=== PATIENT | male | born 1950 | race Caucasian/White ===

== ENCOUNTER 2025-01-25 08:12 | Inpatient (IN) | payer MEDICARE, OTHER, SELFPAY ==
[2025-01-25] VITALS (13 sets, daily range): BP systolic 103–139; BP diastolic 71–105; BMI 27.2
--- NOTE | 2025-01-25 06:46 | ED.GENMED ---
History of Present Illness
General
Chief Complaint: Chest Pain
Source: patient and ambulance crew
Exam Limitations: none
Time Seen by Provider: 01/25/25 06:46
Nursing documentation reviewed up to this point in time: agreed with
History of Present Illness
History of Present Illness:
74-year-old male limited past medical history who was pushing his 's car off the train tracks developed shortness of breath diaphoresis syncope pressure in his chest EMS was called EKG concern for ST segment elevation
Transported here urgently, repeat EKG shows subtle ST elevation inferior with ST depression anteriorly, STEMI alert was activated
He drinks social non-smoker go to the gym 5 days a week
Past History
Past History
ED Past Medical History: None
ED Past Surgical History: None
Social History
Tobacco: Non-smoker
Alcohol: Occasional
Drug: None
Personal:
Living: with family
Employment: Employed
Phy Exam
Physical Exam
Physical Exam:
Physical Exam
General: no apparent distress, not acutely ill
Neck: No jaundice
Heart: s1/s2 regular rate and rhythm, no murmur. equal radial pulses.
Lungs: no acute respiratory distress. clear bilaterally
Abdomen: Nontender
Neuro: alert and oriented. no focal neurological deficits
Skin: no rash
Psychiatric: well kept. interactive and cooperative
Extremities: no edema. no calf tenderness.
Scores
Heart Score for Chest Pain Patients
STEMI patient?: Yes
Course
Orders/Labs/Results
Orders:
Orders
01/25/25 Breakfast
Cholesterol Lowering
At Your Request: Full Participation
Does patient need a safe tray?: No
Cholesterol Lowering: Sodium, 2 Gram
01/25/25 06:32
Electrocardiogram (*1) Urgent
Reason for Study: Chest Pain
Cardiac Monitoring- Treatment ONCE
EKG- Treatment ONCE
IV Insert/Care/Rem.- Treatment PRN
O2 Therapy [RESP] Urgent
Titrate/Wean O2 to maintain O2 sat greater than (%): 90
Special Instructions: Maintain sats >/=90%
Pulse Ox/spot Check [RESP] Urgent
Quantity: 1
Special Instructions: ON ROOM AIR
01/25/25 06:36
Cardiovascular Evaluation Urgent
Comment: ADD ON
Comprehensive Metabolic Panel Urgent
Troponin I Urgent
01/25/25 06:37
Complete Blood Count/With Diff Urgent
Glycohemoglobin (HgbA1c) Urgent
01/25/25 06:52
Fentanyl Citrate/Pf [Sublimaze] 100 mcg .ROUTE .STK-MED ONE
Heparin 10,000 units .ROUTE .STK-MED ONE
Midazolam HCl [Versed] 2 mg .ROUTE .STK-MED ONE
01/25/25 06:59
Heparin 1000 Units/500 ml [Heparin] 1,000 units in 500 ml .ROUTE .STK-MED
Heparin Sodium,Porcine/Ns/Pf [Heparin 2000 Units/1000 ml] 2,000 unit in 1,000 ml .ROUTE .STK-MED
Lidocaine HCl/Pf [Xylocaine-Mpf 1% Vial] 50 mg .ROUTE .STK-MED ONE
Nitroglycerin [Tridil] 1,500 mcg .ROUTE .STK-MED ONE
Verapamil Injectable [Isoptin/Verapamil Injection] 5 mg .ROUTE .STK-MED ONE
01/25/25 07:15
Heparin 5,000 units .ROUTE .STK-MED ONE
Ticagrelor [Brilinta] 180 mg .ROUTE .STK-MED ONE
01/25/25 07:30
NORepinephrine 4 MG/250 ML [Levophed] 4 mg in 250 ml .ROUTE .STK-MED
01/25/25 07:42
Admit Patient As Directed
Co-Sign Provider:
Level of Care: Inpatient admission
Assign to:: IVU
Physician / Group: alexy/ko
Diagnosis: STEMI
Reason for Hospitalization: STEMI, LCx PCI
Expected length of stay greater than two midnights?: Yes
ELOS- Estimated Length of Stay in days: 2
I certify the patient meets the requirements for IP care: Yes
Echo 2D MMode Color/Doppler Routine
Reason for Study: STEMI
Comment: Ko/ALEXY
Electrocardiogram (*1) Urgent
Reason for Study: Other
Other Reason for Exam: s/p intervention
Comment: alexy
Code Status As Directed
Resuscitation Status: Full Code
CARDIAC REHAB CONSULT Routine
Co-Sign Provider:
Cardiac Rehab & Exercise Evaluation Referral
Type of Cardiac Rehab Referral: Outpatient
Diagnosis: STEMI
Date of Diagnosis/Surgery: 01/25/25
Referring Provider: Lisa James
[facility] Intensive Cardiac Rehab Exercise Prescription
The above named person is capable of participating in an intensive cardiac rehab exercise therapy program
under the guidance of the [facility] cardiac rehab staff, outpatient registered dieticians and
supervision of a physician.
ICR Program Objectives:
Provide supervised exercise, cooking classes, nutritional counseling and healthy mind-set education to
improve the function/symptom free work capacity to an optimal level as well as control risk factors to
prevent the progression of heart disease. During the supervised exercise therapy session some or all of
the following may be included in the cardiac rehab session: ECG telemetry, BP, heart rate, rate of
perceived exertion, symptoms/tolerance, cholesterol testing and education. Exercise modalities may
include: treadmill, upright or recumbent bike, spin bike, rowing machine, elliptical, recumbent
elliptical, arm-bike machine, recumbent stepper and free weights.
Intensity:
All CR staff will use ACSM guidelines: Most patients will exercise in the following range: Heart Rate
Struthers range of 40% to 80% & Oxygen Uptake reserve range 40-80% (VO2R). Peak heart rate and VO2 are
derived from the cardiac rehab submaximal graded exercise test at RPE of 13/14 out of 20. Initial
intensity range: RPE 11 to 14/20 and may expand to 11 to 16/20.
Duration & Frequency:
If appropriate the patient will be progressed up to 40 minutes of exercise therapy. Patients will be
instructed to come three times a week in cardiac rehab and at a home/other gym to achieve optimal
physical activity/exercies i.e. 4000-10,000 steps per day.
Education:
The patient will receive one-on-one education during their orientation, initial exercise evaluation, ITP
reassessments and discharge session. Each exercise session will also include an education class (30-40
minutes).
Acetaminophen [Tylenol] 650 mg PO Q4HPRN PRN
Activity As Directed
Activity Level: Out of Bed- Chair
Comment: bed/chair rest for 2 hours then out of bed ad jalil
Chief Jailer Procedure As Directed
Cardiac Cath Procedure: percutaneous coronary intervention
Intake/ Output As Directed
Frequency: Per unit guidelines
Notify MD As Directed
Notify physician if: immediately for chest pain or bleeding from access site(s)
Radial Artery Hemostasis Method As Directed
Instructions:: 3 mL out at 2 hour posts placement of band
3 mL out at 2 1/2 hours post placement of band
3 mL out at 3 hours post placement of band
Off at 3 1/2 hours post placement of band
If any oozing or hemotoma occurs:: re-inflate band and call provider
Site Checks As Directed
Check access site for bleeding/hematoma: Yes
Comment: on arrival, Q15min x4, Q30min x2, Q1 hr x2, Q2 hr x2, Q4 hr or per
protocol
Vascular Checks As Directed
Location: distal to access site - pulse check
Frequency: Other
Comment: on arrival, Q15min x4, Q30min x2, Q1 hr x2, Q2 hr x2, Q4 hr or per protocol
Vital Signs As Directed
Frequency: Other
Additional Instructions:: on arrival, Q15min x4, Q30min x2, Q1 hr x2, Q2 hr x2, then Q4 hr or per unit
protocol
PRN Pain Medication Management As Directed
May give lesser potent ordered pain med per pt: Yes
preference::
Protocol:: Medication orders for pain may be administered in a
manner that supports deferring to patient preference
when the pt is:
- Requesting an ordered lesser potent pain medication.
Least to most potent pain medications are defined
as: acetaminophen < NSAID < tramadol < opioids
(morphine, oxycodone, hydromorphone).
- Requesting a lesser dose of the same medication IF
ORDERED.
- Requesting a less intrusive route of administration
if both routes are prescribed by the provider (PO <
IV).
DX Deep Vein Thrombosis Video Routine
01/25/25 07:45
Add On- LAB Routine
Tests Added?: CVE, HGBA1C
0.9% Sodium Chloride 1000 ml [Nss] 1,000 ml IV PER PROTOCOL
Infusion rate in mL/kg/hr:: 1.5
Infusion rate in mL/hr:: 136
Duration of infusion (hours):: 5
01/25/25 07:46
Case Management Consult ONCE
Case Management Consult: Other
Comment: brilinta cost
01/25/25 08:00
Aspirin Chewable [Low Strength Aspirin] 81 mg PO DAILY
Atropine Sulfate [Atropine 0.1 mg/ml Syringe] 1 mg .ROUTE .STK-MED ONE
Pantoprazole [Protonix] 40 mg PO DAILY
Phenylephrine HCl/0.9% NaCl [Norm-Synephrine] 1,000 mcg .ROUTE .STK-MED ONE
01/25/25 12:00
Troponin I Q6H
01/25/25 18:00
Troponin I Q6H
Atorvastatin [Lipitor] 80 mg PO QPM
Enoxaparin Sodium [Lovenox] 40 mg SC QPM
01/25/25 20:00
Ticagrelor [Brilinta] 90 mg PO BID
01/26/25 00:00
Troponin I Q6H
01/26/25 06:00
Electrocardiogram (*1) IN AM
Reason for Study: Other
Other Reason for Exam: s/p intervention
Comment: dca
Basic Metabolic Panel IN AM
Cardiovascular Evaluation IN AM
Complete Blood Count/No Diff IN AM
Troponin I Q6H
01/27/25 06:00
Electrocardiogram (*1) IN AM
Reason for Study: Other
Other Reason for Exam: s/p intervention
Comment: dca
Basic Metabolic Panel IN AM
Complete Blood Count/No Diff IN AM
Abnormal Lab Results
01/25/25 01/25/25 01/25/25
06:36 06:37 07:19
WBC 3.8 L 10^3/uL
(4.8-10.8)
RBC 4.28 L 10^6/uL
(4.70-6.10)
MCV 95.8 H fL
(80.0-94.0)
MCH 34.1 H pg
(27.0-31.0)
Plt Count 121 L 10^3/uL
(130-400)
Glucose 128 H mg/dl
(70-99)
Total Cholesterol 205 H mg/dl
(50-199)
POC ACT Low Range 319 H Seconds
(116-155)
01/25/25 01/25/25
07:37 07:58
WBC
RBC
MCV
MCH
Plt Count
Glucose
Total Cholesterol
POC ACT Low Range 265 H Seconds 255 H Seconds
[id number] ([id number])
01/25/25 06:37
01/25/25 06:36
Vital Signs
Initial and Last Documented VS:
Initial Vital Signs
Pulse Resp BP Pulse Ox
72 19 128/103 98
01/25/25 06:35 01/25/25 06:35 01/25/25 06:35 01/25/25 06:35
Last Documented Vital Signs
Pulse Resp BP Pulse Ox
65 17 103/82 99
01/25/25 07:00 01/25/25 07:00 01/25/25 06:41 01/25/25 06:50
MDM/Problems Addressed
Differential Diagnosis Includes:
Chest pain syncope abnormal EKG
MDM/Problems Addressed:
STEMI arrhythmia heart block doubt dissection
*Pulse Oximetry
SaO2: 99
Oxygen Mode of Delivery: Room air
Patient hypoxic: no
*EKG
Interpreted by ED Provider?: Yes
Rate: bradycardiac
Rhythm: sinus
Ischemia: ST depression
*Hand Profiler Interpretation
Rate: normal
Interpretation: normal
Heart Rate: 70
Rhythm: sinus
*Critical Care Note
Total Time (30-74mins, 75-104mins- exclusive of procedures): 32
ED Attending Note
-
Portions of this chart may have been created with voice recognition software.� Occasional wrong word or��sound alike� substitutions may have occurred due to the inherent limitations of voice recognition software.
Discharge Plan
Departure
Patient Disposition: Admit
Date of Disposition: 01/25/25
Time of Disposition: 07:04
Admit to: [facility]
Admit to doctor: cardiology
Presentation/result/management discussed w/ accepting MD/DO: Ko Cardiology
Discharge Problem:
ST elevation (STEMI) myocardial infarction
Interventions
Interventions:
*General Assessment Last Done: 01/25/25 06:40
*Nursing Disposition Last Done: 01/25/25 07:00
ED- Cardiac Assessment Last Done: 01/25/25 06:40
Discharge Date and Time
Discharge Date/Time: 01/25/25 07:30
[2025-01-25 07:00] LABS: ALT (SGPT) 20 U/L (0-50); AST (SGOT) 24 U/L (17-59); Albumin 4.2 g/dl (3.5-5.0); Alkaline Phosphatase 79 U/L (38-126); Blood Urea Nitrogen 19 mg/dl (9-20); Calcium 9.1 mg/dl (8.4-10.2); Carbon Dioxide 24 mmol/L (22-30); Chloride 105 mmol/L (98-107); Estimated Creatinine Clearance 58 ml/min; Glucose 128 mg/dl (70-99); Potassium 4.1 mmol/L (3.5-5.1); Sodium 137 mmol/L (135-145); Total Protein 6.8 g/dl (6.3-8.2); eGFR > 60.00
[2025-01-25 07:10] LABS: Troponin I < 0.012 ng/ml
[2025-01-25 07:11] LABS: Hematocrit 41.0 % (39.0-52.0); Hemoglobin 14.6 g/dL (13.0-18.0); Mean Corp Hgb Conc. 35.6 g/dL (33.0-37.0); Mean Corpuscular Volume 95.8 fL (80.0-94.0); Platelet Count 121 10^3/uL (130-400); Red Cell Dist. Width 13.8 % (11.5-14.5)
--- NOTE | 2025-01-25 07:18 | HPS.HSE ---
Addendum entered and electronically signed by Lisa James MD 01/25/25 13:12:
I saw and examined the patient.
The Credit Collection Associate's note was reviewed and I agree with the note.
Comment: Juanito is a 74-year-old gentleman with past medical history of partial retinal artery occlusion on the left eye in 2018, bilateral carotid artery disease, mild to moderate, family history of premature coronary artery disease with his dad
passing at the age of 61, non-smoker, not on any chronic medications who presents with acute onset of substernal chest burning and shortness of breath while trying to push a car this morning. He spends a lot of his time in [place] and had been
following with a primary care physician who then switched his practice to mayuri FRANCES so he has not seen anyone recently but had lab work he thinks within the last year and was told all of his risk factors were well-controlled. He is very active
exercising in the gym 5 days a week without limiting symptoms recently. Last echocardiogram from 2018 showed normal biventricular function with no significant valvular abnormalities. He previously used to be on antihypertensive medications but
given his blood pressures that improved to normal he stopped these.
On exam patient is in mild distress from dyspnea and chest burning, regular rate, normal S1 and S2, no murmurs, rubs or gallops, mild JVD, decreased breath sounds at bilateral bases but otherwise clear, abdomen is soft, nontender, nondistended with
active bowel sounds, 2+ radial pulses, warm extremities without significant edema.
ECG showed atrial fibrillation with ST elevations in V5 V6, 1, very mildly in aVL with ST depressions in V1 through V3 concerning for a posterolateral ST elevation AK for which the heart catheterization team was activated emergently. Patient
received 325 mg of aspirin, 180 mg of ticagrelor and 5000 units of IV unfractionated heparin in the emergency room and was urgently brought up to the heart catheterization lab. He had also received 2 sublingual nitroglycerin.
Please see cath report for findings
Patient was found to have a culprit lesion in the proximal left circumflex with a 90 to 95% stenosis and FAWAD II flow into the distal vessel which was treated with one 3.0 x 22 mm Medtronic Malin frontier drug-eluting stent, postdilated using a 3.5 x
15 mm NC balloon at high pressures with an excellent angiographic result and FAWAD-3 flow restored into the distal vessel.
Plan for uninterrupted dual antiplatelet therapy with daily baby aspirin and Brilinta along with high intensity statin. Will initiate beta-toni as tolerated. He just came off Levophed so we will hold off for now.
LVEDP is 20 mmHg however patient is comfortable laying flat on room air so we will hold off on diuresis for now.
Plan for full echocardiogram to assess biventricular function and rule out any significant valvular abnormalities.
Aggressive management of cardiovascular risk factors, recommendation for high-fiber Mediterranean type diet and staying physically active.
Eventual referral for outpatient cardiac rehab.
Continue to trend troponins and EKGs with plan to monitor in the hospital on telemetry for at least 48 hours.
Discussed all of the above with nursing and . Answered all of their questions in significant detail.
Lisa James MD, [facility], [facility]
Modifier .
Original Note:
Family Physician
-
Family Physician: Mayuri FRANCES
Chief Complaint
-
Exertional chest pain, RUIZ, diaphoresis
History of Present Illness
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
without issue. Echo 2018 with nml BiV size/function, no WMA, EF 55-60%, no significant valvular disease. Carotid dopplers from 2018 with <50% bilat internal LETHA. Pt endorses that he had been taking antihypertensive meds in the past, but stopped on
his own, states he checks his BP at home and it's always 110-120s.
Today, developed new onset exertional chest pain/pressure with dyspnea and diaphoresis. EMS was called and EKG showed atrial fibrillation with subtle inferior ST elevations with anterolateral ST depressions. Given aspirin 324mg and brought to [facility]
ER where EKG showed continued AFib with progressive inferior ST elevations and deeper anterolateral ST depressions. Given 180mg ticagrelor and heparin 5000u, urgently brought to mechanical shop [facility].
Medical History
Past Medical History
Past Medical History: Reports Other (Left Eye Hollenhorst Plaque (2018), mild bilateral Carotid artery stenosis (<50%))
Past Surgical History: Reports None
Social History
Tobacco: Non-smoker
Alcohol: Occasional
Drug: None
Personal:
Living: With Family
Employment: Employed
Family History
Family History: CAD (Father at 61 from AK/CAD)
Allergies / Home Medications
Allergies reflects when Allergies were last updated in [employer].
Home Medications with original date entered in [employer]
Allergy/Medication List:
Allergies
Allergy/AdvReac Type Severity Reaction Status Date / Time
No Known Allergies Allergy Verified 01/25/25 06:45
Pt is not taking any medications
Review of Systems
-
History Source: Patient
A 12 point ROS was completed and negative except as noted: Yes
Respiratory: Reports Trouble Breathing (RUIZ/SOB)
Cardiac: Reports Chest Pain and Diaphoresis
Physical Exam
Vital Signs
Vital Signs
Pulse Resp BP Pulse Ox
65 17 103/82 99
01/25/25 07:00 01/25/25 07:00 01/25/25 06:41 01/25/25 06:50
PE deferred d/t urgent nature of AK
Physical Exam
General: Well Developed
Laboratory Results
-
01/25/25 06:37
01/25/25 06:36
Laboratory Results
Total Bilirubin 1.2 mg/dl (0.2-1.3) 01/25/25 06:36
AST 24 U/L (17-59) 01/25/25 06:36
ALT 20 U/L (0-50) 01/25/25 06:36
Alkaline Phosphatase 79 U/L (38-126) 01/25/25 06:36
Troponin I < 0.012 ng/ml 01/25/25 06:36
Data Reviewed
-
Medical Tests (Nuc Med, Echo, EKG etc): Image Personally Visualized and interpreted and Discussed with Physician
Lab Data: Labs Reviewed by me
Old Records: Reviewed
Impression/Plan
-
PCP: None
CDY: None prior to admission, seen by Dr. Lisa James MD
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
without issue. Echo 2018 with nml BiV size/function, no WMA, EF 55-60%, no significant valvular disease. Carotid dopplers from 2018 with <50% bilat internal LETHA. Pt endorses that he had been taking antihypertensive meds in the past, but stopped on
his own, states he checks his BP at home and it's always 110-120s.
Today, developed new onset exertional chest pain/pressure with dyspnea and diaphoresis. EMS was called and EKG showed atrial fibrillation with subtle inferior ST elevations with anterolateral ST depressions. Given aspirin 324mg and brought to [facility]
ER where EKG showed continued AFib with progressive inferior ST elevations and deeper anterolateral ST depressions. Given 180mg ticagrelor and heparin 5000u, urgently brought to mechanical shop lab[facility].
IMPRESSION:
Acute Lateral STEMI
s/p prox LCx PCI/EDGAR x1
New onset AFib
Hollenhorst plaque, left eye (2018)
<50% bilateral Carotid artery disease
FH CAD
PLAN:
Admit IVU/monitor tele
First troponin negative, trend to peak
s/p LCx PCI- will be on DAPT w/asa, ticagrelor- CM to check cost
Bradycardia and hypotension during cath- requiring atropine, neosynephrine, and levophed for support- now titrated off and stable
Hold on any beta toni, freda/arb for now- will monitor
New onset AFib- no prior history- will monitor but likely will need OAC [id number]- would start eliquis 5mg BID but would need to switch to from ticagrelor to clopidogrel
Echo today
Lipid profile pending- new start high intensity statin therapy- atorvastatin 80mg daily
Cardiac rehab
followup with [facility]
[2025-01-25 07:27] LABS: ACT-LR - POC 319 Seconds (116-155)
[2025-01-25 07:44] LABS: ACT-LR - POC 265 Seconds (116-155)
[2025-01-25 08:03] LABS: ACT-LR - POC 255 Seconds (116-155)
[2025-01-25 08:27] LABS: HDL Cholesterol 61 mg/dl; LDL Cholesterol, Calculated 122 mg/dl; Very Low Density Lipoprotein 22 mg/dl (0-30)
[2025-01-25 09:39] LABS: Glycohemoglobin (HgbA1c) 5.1 % (4.0-5.9)
[2025-01-25] MEDS: LOW STRENGTH ASPIRIN PO (10:03)
[2025-01-25 10:56] LABS: Nucleated Red Blood Cells % 0 % (-)
--- NOTE | 2025-01-25 11:03 | ITS.CL.CATH ---
Whiting Machine Operator - Catheterization
Cardiac Catheterization
Procedure Report:
LEFT HEART CATHETERIZATION AND CORONARY INTERVENTION
Date of Procedure: January 25, 2025
Referring: [facility]
PROCEDURES:
1. Left heart catheterization, coronary angiogram.
2. Moderate sedation.
3. Successful percutaneous coronary artery intervention of a 90 to 95% hazy proximal to mid left circumflex stenosis with FAWAD II flow with one 3.0 x 22 mm Medtronic River[place] frontier drug-eluting stent, postdilated with a 3.5 mm NC balloon at high
pressures with an excellent angiographic result with FAWAD-3 flow into the distal vessel.
4. Intravascular ultrasound (IVUS)
INDICATION: Posterolateral ST elevation AZ
ACCESS: Right radial artery, 6Fr. sheath, under US guidance.
HEMODYNAMICS : (mmHg)
AO (s/d) : 106/72
LVEDP : 20
No significant gradient across the aortic valve to suggest aortic stenosis.
CORONARY FINDINGS
Dominance: Right
Left Main Trunk (LMT): Large caliber vessel that gives rise to the LAD and LCx branches and is free of angiographic disease.
Left Anterior Descending Artery (LAD): Large caliber vessel that gives off 2 major diagonal branches as it courses along the anterior inter-ventricular groove before wrapping around the cardiac apex. Mid LAD has a moderate degree of tortuosity and
distal to this there is a small area of myocardial bridge. D1 is a medium caliber vessel with diffuse 40 to 50% ostial to proximal stenosis.
Left Circumflex Artery (LCx): Large caliber vessel that gives off 3 major obtuse marginal (OM) branches as it courses along the atrio-ventricular (AV) groove. There is a 90 to 95% hazy proximal to mid left circumflex stenosis just proximal to OM1
takeoff which is thought to be the culprit lesion. Area just distal to OM1 takeoff has a 70 to 75% stenosis.
Right Coronary Artery (RCA): Large caliber dominant vessel that gives rise to the posterior descending artery (RPDA) and postero-lateral ventricular (RPLV) branches distally. The RCA and its branches are free of angiographic disease. The RPL
system is very small.
CORONARY INTERVENTION: Decision was made to proceed with intervention to proximal left circumflex. Additional heparin was given to maintain a therapeutic ACT throughout the case. The left coronary artery was selectively engaged using a 6 [place]
EBU 3.5 guide catheter. A 190 cm 0.014 run-through wire was carefully navigated across the proximal left circumflex stenosis into the distal vessel. The lesion was predilated using a 2.5 x 12 mm semi-compliant balloon with full expansion. We
noted that there was severe disease also just distal to the culprit lesion just distal to the OM1 takeoff. We initially tried to bring in a 3.0 x 22 mm Medtronic River[place] frontier drug-eluting stent but we could not advance it past the lesion distal to
OM1. We decided to further pre-dilate using a 2.75 mm semi-compliant balloon with multiple inflations resulting in full expansion. Subsequently we deployed a 3.0 x 22 mm Medtronic River[place] frontier drug-eluting stent. We tried to bring in a [place]
Emmalena eye IVUS catheter but could not advance this beyond the proximal bend due to tortuosity in the left circumflex artery. Visualized portion of the left main and proximal left circumflex showed mild diffuse atherosclerotic plaque. Initially
postdilated with a 3.25 mm NC balloon at high pressures. Given concern for some underexpansion we further postdilated with a 3.5 mm NC balloon at high pressures with an excellent angiographic result. FAWAD-3 flow was restored into the distal
vessel. Patient tolerated the procedure well with no acute complications. He had been loaded with 180 mg of ticagrelor in the emergency room.
SEDATION: 67 minutes of procedural sedation was utilized. IV Midazolam and IV Fentanyl were administered. An independent medical intern was present to assist with and help manage the patient's level of consciousness and physiologic status.
RADIATION SUMMARY: Fluoro Time (min): 11.9, Dose (mGy): 1179.8, DAP (Gy.cm2) : 72.8
Closure Device: There were no immediate intra-procedural complications. The sheath was pulled in the director of cardiac cath lab and a vascular-band applied to the right wrist for radial artery hemostasis using the patent hemostasis technique.
CONCLUSIONS
1. Successful percutaneous coronary artery intervention of a 90 to 95% hazy proximal to mid left circumflex stenosis with FAWAD II flow with one 3.0 x 22 mm Medtronic River[place] frontier drug-eluting stent, postdilated with a 3.5 mm NC balloon at high
pressures with an excellent angiographic result with FAWAD-3 flow into the distal vessel.
2. LVEDP mildly elevated at 20 mmHg
RECOMMENDATIONS
1. Wean radial band per protocol. Monitor right hand perfusion and for bleeding from the radial site following removal of the vascular-band following trans-radial access.
2. Continue aggressive medical therapy and risk factor modification for secondary CAD prevention.
3. Continue ASA 81 mg daily for life.
4. Continue Ticagrelor for at least 12 months of uninterrupted dual anti-platelet therapy given drug-eluting stent (EDGAR) implantation to mitigate the risk of stent thrombosis. This is not to be stopped for any reason without the guidance of a
rn hedis. Given very brief mike-AZ atrial fibrillation, will discuss with EP colleagues in regards to indication for long-term anticoagulation in which case we may consider switching him to Plavix to minimize risk for bleeding. In the setting
if he ends up on full anticoagulation plan will be to discontinue aspirin after 7 days and maintaining him on Eliquis and Plavix to minimize risk for bleeding.
5. Hydrate with normal saline to mitigate the risk of contrast-induced acute kidney injury.
6. Referral for outpatient cardiac rehab.
7. Echocardiogram to assess biventricular function and rule out valvular disease.
Lisa James MD, [facility], [facility]
--- NOTE | 2025-01-25 12:05 | CM ---
Reviewed chart. Met with And Mrs Tran to review discharge plans. He states prior to admission he resides in a two story home with three steps to enter. He states has a first floor set-up. He states he also spends time in [place]. He has
a third floor condo with an elevator in [place]. He states prior to admission he was independent with ambulation and adls. He states he does not any DME in the home. He states he has a prescription plan with [employer] and uses [facility]. He
states his spouse works outside the home. Telephone call to [employer] to check on co-pay for Brilinta. He has not met his deductible of $573.00 so he will pay $446.66 for his first script until he has met his deductible. After he mets his deductible
he will pay $89.33 a month. He does have coverage for Ticagrelor 90 mg po and his co-pay would be $25.10 a month. Reviewed co-pays with him. He is agreeable to the co-pay for Ticagrelor. Telephone call to [facility] in [place] to see if
they have Ticagrelor in stock. They do not. Telephone call to [facility] in [place], [place] to check if they have it in stock. They have one bottle 60 tablets in stock. Updated N.P regarding Ticagrelor. Medial work-up in progress. The discharge
plan is to return home with his spouse when medically stable.
[2025-01-25 13:31] LABS: Troponin I 35.600 ng/ml
--- NOTE | 2025-01-25 13:40 | PTCARENOTE ---
Pt converted on his own from A-fib to SR at around 1100.
--- NOTE | 2025-01-25 14:44 | PTCARENOTE ---
Pt had a small hematoma earlier, proximal to R-band, noted and pressed out by Marlene Sanchez, pressure held for 10-15 min. Site now soft but ecchymotic. Pt denies any pain. R wrist measured and marked- 21 cm, L wrist also measures 21 cm.
[2025-01-25] MEDS: PROTONIX 40 MG PO (15:40)
[2025-01-25 16:25] LABS: Hepatitis C Antibody Negative (Negative)
[2025-01-25] MEDS: LIPITOR 80 MG PO (17:52)
[2025-01-25] MEDS: LOVENOX 40 MG SC (17:52)
[2025-01-25 19:31] LABS: Troponin I 55.100 ng/ml
[2025-01-25] MEDS: BRILINTA 90 MG PO (19:37)
[2025-01-26] VITALS (7 sets, daily range): BP systolic 101–126; BP diastolic 69–88; BMI 27.1
--- NOTE | 2025-01-26 01:14 | PTCARENOTE ---
Received pt at change of shift resting in bed, at bedside. SR on tele, HR 60's. pt denies any CP or SOB at this time. R radial site C/D/I but ecchymotic, no bleeding or hematoma noted at this time. pt updated on plan of care, educated pt to
call RN w/ any questions/concerns. Call chowdhury within reach.
[2025-01-26 01:51] LABS: Troponin I 31.200 ng/ml
[2025-01-26 05:39] LABS: Hematocrit 45.6 % (39.0-52.0); Hemoglobin 15.5 g/dL (13.0-18.0); Mean Corp Hgb Conc. 34.0 g/dL (33.0-37.0); Mean Corpuscular Volume 99.6 fL (80.0-94.0); Platelet Count 140 10^3/uL (130-400); Red Cell Dist. Width 14.1 % (11.5-14.5)
[2025-01-26 05:58] LABS: Blood Urea Nitrogen 12 mg/dl (9-20); Calcium 9.1 mg/dl (8.4-10.2); Carbon Dioxide 28 mmol/L (22-30); Chloride 104 mmol/L (98-107); Estimated Creatinine Clearance 64 ml/min; Glucose 96 mg/dl (70-99); HDL Cholesterol 58 mg/dl; LDL Cholesterol, Calculated 118 mg/dl; Potassium 4.3 mmol/L (3.5-5.1); Sodium 133 mmol/L (135-145); Very Low Density Lipoprotein 20 mg/dl (0-30); eGFR > 60.00
[2025-01-26 06:20] LABS: Troponin I 23.300 ng/ml
[2025-01-26] MEDS: BRILINTA 90 MG PO ×2 (07:47→20:30)
[2025-01-26] MEDS: PROTONIX 40 MG PO (07:47)
[2025-01-26] MEDS: LOW STRENGTH ASPIRIN 81 MG PO (07:47)
[2025-01-26] MEDS: FLUSH (NSS) 2 FLUSH IV (07:48)
--- NOTE | 2025-01-26 07:50 | PTCARENOTE ---
The patient is aaox3, his vital signs are stable, NSR is noted on the monitor. His right wrist dressing is c/d/i. However, there is extensive ecchymosis surrounding his dressing. He has no complaints of pain or discomfort. I reviewed his activity
restrictions. We discussed cardiac rehab and post cath medications. He anxious to get back to [place].
--- NOTE | 2025-01-26 09:35 | W.PN.CARDCBS ---
Addendum entered and electronically signed by Lisa James MD 01/26/25 23:13:
Should get outpt sleep study to rule out ALEXANDR.
Lisa James MD
Addendum entered and electronically signed by Lisa James MD 01/26/25 16:19:
I saw and examined the patient.
The Supervisor Engine Assembly's note was reviewed and I agree with the note.
Comment: Overall patient did well overnight and does not offer any significant complaints. No recurrent chest burning or shortness of breath. No issues at the right radial access site. mentions overnight possible hypoxia concerning for
questionable sleep apnea
Vital signs and lab work reviewed. Patient is out of bed in a chair with at bedside, no acute distress, awake, alert and oriented x 3, no carotid bruit, normal carotid upstrokes, no JVD, lungs are clear to auscultation bilaterally, regular
rate, normal S1 and S2, no murmurs, rubs or gallops, abdomen is soft, nontender, nondistended with active bowel sounds, warm extremities without significant edema. Right radial access site with dressing in place which is clean, dry and intact
without evidence of hematoma or bruit.
Telemetry reviewed with noted episodes of brief mike-NE atrial fibrillation. Short runs of NSVT.
ECG with no persistent ST-T wave changes.
Recommendations:
1. Patient is status post posterolateral ST elevation NE with proximal to mid left circumflex drug-eluting stent with plan for uninterrupted dual antiplatelet therapy with daily baby aspirin and Brilinta 90 mg along with high intensity statin with
LDL goal of less than 55. Agree with adding low-dose beta-toni given ongoing NSVT with close monitoring of hemodynamics. Blood pressures have been stable.
2. Extensive discussion was had with patient and and given paroxysmal atrial fibrillation noted with concern that it may not be the first time he has had it and could have had asymptomatic episodes at home and may be at risk for having
A-fib in the future increasing risk for stroke. His CHADS2 Vasc score is 5 warranting long-term anticoagulation. We discussed the risk and benefits in extensive detail given he is now out of atrial fibrillation. For now given how active patient's
lifestyle is and his concerns for bleeding complications he would like to hold off on initiating Eliquis. In the setting we will plan to set him up with a 14-day rhythm stroke registered nurse cardiac telemetry upon discharge to keep a close eye on any recurrent
A-fib.
3. Echocardiogram yesterday was reviewed by myself which showed preserved LV systolic function without significant wall motion abnormalities.
4. Cardiology follow-up will be set up in the near future. In case further atrial fibrillation is noted or upon further discussions plan is to place him on Eliquis for stroke prevention then I would strongly opt to change the Brilinta to
clopidogrel to minimize risk for bleeding with plan to continue Eliquis and Plavix for the first year and also discontinue aspirin, again to minimize risk for bleeding. For now the plan is to continue DAPT with aspirin and Brilinta given patient
and want to hold off on Eliquis initiation.
5. Outpatient cardiac rehab was discussed and its role along with importance of a Mediterranean type diet that is focused on high-fiber and low carbs and staying physically active.
All of their questions and concerns were addressed in significant detail.
Lisa James MD, [facility], [facility]
Total time spent: 52 minutes
Original Note:
Today's Communication / Plan
-
Continue to monitor another 24 hours
Will discuss risks/benefits of OAC for Afib and consider switching to clopidogrel/apixaban
oob ambulate
start low dose BB
Impression / Plan
-
PCP: None
CDY: None prior to admission, seen by Dr. Lisa James MD
74 y/o white male, [facility] plaque/partial retinal artery occlusion- Left eye in 2018, bilateral carotid artery disease (<50%), takes no medications, FH CAD (Father of [place] at 61), never tobacco, social ETOH, exercises 5 days a week
without issue. Echo 2018 with nml BiV size/function, no WMA, EF 55-60%, no significant valvular disease. Carotid dopplers from 2018 with <50% bilat internal LETHA. Pt endorses that he had been taking antihypertensive meds in the past, but stopped on
his own, states he checks his BP at home and it's always 110-120s.
Today, developed new onset exertional chest pain/pressure with dyspnea,dizziness and diaphoresis, while trying to push a car off train track. EMS was called and EKG showed atrial fibrillation with subtle inferior ST elevations with anterolateral ST
depressions. Given aspirin 324mg and brought to [facility] ER where EKG showed continued AFib with progressive inferior ST elevations and deeper anterolateral ST depressions. Given 180mg ticagrelor and heparin 5000u, urgently brought to label maker.
IMPRESSION:
Acute Lateral STEMI
s/p prox LCx PCI/EDGAR x1
New onset AFib - converted
[place] plaque, left eye (2018)
<50% bilateral Carotid artery disease
FH CAD
PLAN:
Post PCI LCx, no further cp
tele converted to SR last night but had 3b NSVT and PAT o/n
rad site with some ecchymosis, good pulse
Troponin peaked 55.1
Echo with preserved EF, no WMA, no valvular disease
will be on DAPT w/asa, ticagrelor- will have discussion regarding OAC for Afib may not be new dx
[id number] (age, stroke, CAD), with higher risk possibly start OAC Eliquis and switch ticagrelor to clopidogrel
HR/BP improved, will initiate low dose BB this am and monitor
Hold on any freda/arb for now with stable BP
Lipid with LDL 118, continue high intensity statin therapy- atorvastatin 80mg daily, will need repeat LFT's and lipids in 6-8 weeks
Cardiac rehab c/s
followup with [facility] 2-4 weeks
discussed need to have cards/PCP in [place] as he is back and forth multiple times/year
reviewed plan with pt/ (RN) at bedside.
OOB ambulate
will continue to monitor on tele another 24 hours, Home possibly tomorrow
Progress Note - Automatic Drilling Machine Operator
Subjective
Date of Service: January 26, 2025
denies cp, sob
Objective
Labs:
01/26/25 04:53
01/26/25 04:53
Labs
Hgb 15.5 g/dL (13.0-18.0) 01/26/25 04:53
Hct 45.6 % (39.0-52.0) 01/26/25 04:53
Plt Count 140 10^3/uL (130-400) 01/26/25 04:53
Sodium 133 mmol/L (135-145) L 01/26/25 04:53
Potassium 4.3 mmol/L (3.5-5.1) 01/26/25 04:53
BUN 12 mg/dl (9-20) 01/26/25 04:53
Creatinine 1.1 mg/dL (0.7-1.3) 01/26/25 04:53
Glucose 96 mg/dl (70-99) 01/26/25 04:53
Troponins
01/25/25 01/25/25 01/25/25
06:36 12:35 18:54
Troponin I < 0.012 35.600 H* D 55.100 H* D
01/26/25 01/26/25
01:05 04:53
Troponin I 31.200 H* D 23.300 H* D
Vital Signs and I&O:
Vital Signs
Temp Pulse Resp BP Pulse Ox
98.4 F 66 18 126/88 99
01/26/25 07:13 01/26/25 07:13 01/26/25 07:13 01/26/25 07:11 01/26/25 07:13
Vital Signs
Temp Pulse Resp BP Pulse Ox
98.4 F 66 18 126/88 99
01/26/25 07:13 01/26/25 07:13 01/26/25 07:13 01/26/25 07:11 01/26/25 07:13
Intake & Output
01/24/25 01/25/25 01/26/25 01/27/25
06:59 06:59 06:59 06:59
Intake Total 1560 / 1560
Output Total 1800 / 1800
Balance -240 / -240
Physical Exam
Physical Exam
NAD< AOX3
S1, S2, RRR
CTAB, non labored, no wheeze
SNTND Bsx4
R rad site no HT< mild ecchymosis of forearm, good pulse
[2025-01-26] MEDS: TOPROL XL 25 MG PO (10:06)
--- NOTE | 2025-01-26 10:26 | CM ---
Reviewed chart, Met with and Mrs. Tran to review discharge plans. He states he is feeling better and maybe able to go home soon. We reviewed the his Ticagrelor is being filled at the [facility] in [place]. He would like all of his scripts to go
to the [facility] in [place] to be filled there. Prior to admission he resides in a two story home with three steps to enter. He has a first floor set-up. He also spends time in [place]. He has a third floor condo with an elevator in [place].
Prior to admission he was independent with ambulation and adls. He does not any DME in the home. He states he has a prescription plan with [employer] and uses [facility]. He states his spouse works outside the home. Telephone call to [employer] to
check on co-pay for Brilinta. He has not met his deductible of $573.00 so he will pay $446.66 for his first script until he has met his deductible. After he mets his deductible he will pay $89.33 a month. He does have coverage for Ticagrelor 90 mg
po and his co-pay would be $25.10 a month. Reviewed co-pays with him. He is agreeable to the co-pay for Ticagrelor. Telephone call to [facility] in [place] to see if they have Ticagrelor in stock. They do not. Telephone call to [facility]
in [place], [place] to check if they have it in stock. They have one bottle 60 tablets in stock. Updated N.P regarding Ticagrelor. Medial work-up in progress. The discharge plan is to return home with his spouse when medically stable.
--- NOTE | 2025-01-26 14:17 | PTCARENOTE ---
I had a long discussion with the patient and his concerning Afib and his risk for stroke. Prior to our discussion, he was reluctant to take any anticoagulants. I assigned the Afib educational videos which they both watched. After our
discussion and watching the videos he is now more receptive to taking anticoagulants.
[2025-01-26] MEDS: LOVENOX 40 MG SC (17:25)
[2025-01-26] MEDS: LIPITOR 80 MG PO (17:25)
--- NOTE | 2025-01-26 23:33 | PTCARENOTE ---
Received pt at change of shift resting in bed, at bedside. SB on tele, HR 50's. pt denies any CP or SOB at this time. R radial site C/D/I but ecchymotic, no bleeding or hematoma noted at this time. Educated pt on activity restrictions of the R
wrist, pt verbalizes understanding. pt updated on plan of care, educated pt to call RN with any questions/concerns. Call chowdhury within reach.
[2025-01-27 03:16] VITALS: BP 113/78
[2025-01-27 04:03] LABS: Hematocrit 41.9 % (39.0-52.0); Hemoglobin 14.6 g/dL (13.0-18.0); Mean Corp Hgb Conc. 34.8 g/dL (33.0-37.0); Mean Corpuscular Volume 96.1 fL (80.0-94.0); Platelet Count 122 10^3/uL (130-400); Red Cell Dist. Width 14.0 % (11.5-14.5)
[2025-01-27 04:40] LABS: Blood Urea Nitrogen 14 mg/dl (9-20); Calcium 9.0 mg/dl (8.4-10.2); Carbon Dioxide 25 mmol/L (22-30); Chloride 106 mmol/L (98-107); Estimated Creatinine Clearance 58 ml/min; Glucose 91 mg/dl (70-99); Potassium 4.3 mmol/L (3.5-5.1); Sodium 137 mmol/L (135-145); eGFR > 60.00
[2025-01-27 08:11] VITALS: BP 151/96
[2025-01-27] MEDS: LOW STRENGTH ASPIRIN 81 MG PO (09:04)
[2025-01-27] MEDS: TOPROL XL 25 MG PO (09:04)
[2025-01-27] MEDS: PROTONIX 40 MG PO (09:04)
[2025-01-27] MEDS: ELIQUIS 5 MG PO (09:25)
--- NOTE | 2025-01-27 11:00 | W.PN.CARDCBS ---
Addendum entered and electronically signed by Rick Cueto MD 01/27/25 19:00:
I saw and examined the patient.
The Paster Operator's note was reviewed and I agree with the note.
Comment: Briefly, 74-year-old man who developed abrupt onset chest discomfort and dyspnea while pushing his 's car off of train tracks. Evaluated in the field and found to be in atrial fibrillation. Brought to ER where ECG showed ST changes
concerning for acute ischemia. He underwent urgent invasive coronary angiography and was found to have hazy thrombotic occlusion of the proximal left circumflex treated with drug-eluting stent.
At the time of my evaluation this morning patient was resting comfortably out of bed to chair
Tells me he has been ambulating in the hallways and is asymptomatic from a cardiovascular standpoint
Telemetry showing sinus rhythm as well as paroxysmal atrial tachycardia
Given new diagnosis of atrial fibrillation plan is to discharge on Eliquis/Plavix
Outpatient air sampling and monitoring in place to assess A-fib burden
High intensity statin for goal LDL at least less than 70
New to metoprolol
Reviewed the importance of cardiac rehab
Discussed with at bedside, all questions answered
Original Note:
Today's Communication / Plan
-
continue post VT care
paroxysmal PAT, will start OAC this am and switch ticagrelor to clopidogrel with load this afternoon
will still set up outpt holter monitor at d/c for continued monitoring
home this afternoon
Impression / Plan
-
PCP: None
CDY: None prior to admission, seen by Dr. Lisa James MD
74 y/o white male[facility]- Left eye in 2018, bilateral carotid artery disease (<50%), takes no medications, FH CAD (Father of [place] at 61), never tobacco, social ETOH, exercises 5 days a week
without issue. Echo 2018 with nml BiV size/function, no WMA, EF 55-60%, no significant valvular disease. Carotid dopplers from 2018 with <50% bilat internal LETHA. Pt endorses that he had been taking antihypertensive meds in the past, but stopped on
his own, states he checks his BP at home and it's always 110-120s.
Today, developed new onset exertional chest pain/pressure with dyspnea,dizziness and diaphoresis, while trying to push a car off train track. EMS was called and EKG showed atrial fibrillation with subtle inferior ST elevations with anterolateral ST
depressions. Given aspirin 324mg and brought to [facility] ER where EKG showed continued AFib with progressive inferior ST elevations and deeper anterolateral ST depressions. Given 180mg ticagrelor and heparin 5000u, urgently brought to golf course laborer.
IMPRESSION:
Acute Lateral STEMI
s/p prox LCx PCI/EDGAR x1
New onset AFib - converted
[place] plaque, left eye (2018)
<50% bilateral Carotid artery disease
FH CAD
PLAN:
Post PCI LCx, no further cp
tele SR until this am had run of PAT which appeared irregular, asymptomatic
rad site with some ecchymosis, good pulse
Troponin peaked 55.1
Echo with preserved EF, no WMA, no valvular disease
With another episode of PAT HR 170's and asymptomatic we can assume he may have paroxysmal Afib
Will initiate OAC Eliquis 5mg bid, and switch antiplatelet to clopidogrel with 600mg load this afternoon
Pt family still requesting monitor be placed on at d/c for further monitoring which is reasonable
[id number] (age, stroke, CAD)
tolerating BB, will continue with 25mg and consider titration as outpt
Hold on any freda/arb for now with stable BP and NL EF
Lipid with LDL 118, continue high intensity statin therapy- atorvastatin 80mg daily, will need repeat LFT's and lipids in 6-8 weeks
Cardiac rehab c/s
followup with [facility] 2-4 weeks
discussed need to have cards[place]PCP in [place] as he is back and forth multiple times/year
reviewed plan with pt/ (RN) at bedside.
Plan for d/c home after 2pm if remains stable
Progress Note - Executive Pilot
Subjective
Date of Service: January 27, 2025
denies cp, sob, palpitations
Objective
Labs:
01/27/25 03:35
01/27/25 03:35
Labs
Hgb 14.6 g/dL (13.0-18.0) 01/27/25 03:35
Hct 41.9 % (39.0-52.0) 01/27/25 03:35
Plt Count 122 10^3/uL (130-400) L 01/27/25 03:35
Sodium 137 mmol/L (135-145) 01/27/25 03:35
Potassium 4.3 mmol/L (3.5-5.1) 01/27/25 03:35
BUN 14 mg/dl (9-20) 01/27/25 03:35
Creatinine 1.2 mg/dL (0.7-1.3) 01/27/25 03:35
Glucose 91 mg/dl (70-99) 01/27/25 03:35
Troponins
01/25/25 01/25/25 01/25/25
06:36 12:35 18:54
Troponin I < 0.012 35.600 H* D 55.100 H* D
01/26/25 01/26/25
01:05 04:53
Troponin I 31.200 H* D 23.300 H* D
Vital Signs and I&O:
Vital Signs
Temp Pulse Resp BP Pulse Ox
97.4 F 102 20 113/78 99
01/27/25 08:12 01/27/25 06:00 01/27/25 08:12 01/27/25 03:16 01/27/25 08:12
Vital Signs
Temp Pulse Resp BP Pulse Ox
97.4 F 102 20 113/78 99
01/27/25 08:12 01/27/25 06:00 01/27/25 08:12 01/27/25 03:16 01/27/25 08:12
Intake & Output
01/25/25 01/26/25 01/27/25 01/28/25
06:59 06:59 06:59 06:59
Intake Total 1560 / 1560
Output Total 1800 / 1800
Balance -240 / -240
Physical Exam
Physical Exam
NAD< AOx3
S1, S2, RRR
CTAB, non labored, no wheeze
SNTND Bsx4
R rad site ecchymotic with good pulse
--- NOTE | 2025-01-27 11:04 | CM ---
Reviewed chart. Met with and Mrs. Tran to review discharge plans. He is feeling okay and is hoping he will go home soon. Telephone call to [employer] to check on co-pay for Eliquis 5 mg po bid. His first co-pay would be $555.92 until he mets
his deductible. After he mets his deductible his co-pay would be $120.00 a month. Placed the one month free coupon in his discharge folder. Reviewed co-pay with them and they are agreeable to the co-pay. Updated PEDIATRIC ASSISTANT regarding co-pay. Prior to
admission he resides in a two story home with three steps to enter. He has a first floor set-up. He also spends time in [place]. He has a third floor condo with an elevator in [place]. Prior to admission he was independent with ambulation and
adls. He does not any DME in the home. He states he has a prescription plan with [employer] and uses [facility]. He states his spouse works outside the home. Medical work-up in progress. The discharge plan is to return home with his spouse
when medically stable.
[2025-01-27 11:05] VITALS: BP 155/100
--- NOTE | 2025-01-27 11:22 | PTCARENOTE ---
Pt ambuated in room and halls today, moni well, denies pain, denies SOB.
--- NOTE | 2025-01-27 13:28 | W.DS.TRANS ---
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
-
Discharge Instructions:
Sleep Apnea Risk Low
Discharge Diagnosis/Procedures STEMI, s/p angioplasty and stent to Left
Circumflex artery
Diet Low Cholesterol
Activity No strenuous activity
Additional Activity For 1 week- NO weight lifting or working out
until cardiac rehab
Driving Restrictions No driving for 24 hours
Others Tests You will wear the Holter monitor for 2 weeks
Other Services Cardiac Rehab
Instructions:
Stand-Alone Forms: DC Instructions- Cath/EP Lab
Changes to Home Medications: Yes
Discharge Medications:
DC Medications w/original date entered in [facility]
cholecalciferol (vitamin D3) 25 mcg (1,000 unit) capsule (Vitamin D3) 1,000 unit PO DAILY 01/25/25
multivitamin 1 tab PO DAILY 01/25/25
saw palmetto 80 mg capsule 320 mg PO DAILY 01/25/25
vitamin B complex 1 cap PO DAILY 01/25/25
zinc tab PO WEEKLY 01/25/25
atorvastatin 80 mg tablet 80 mg PO QPM #30 tabs 01/26/25
metoprolol succinate 25 mg tablet,extended release 24 hr 25 mg PO DAILY #30 tabs 01/26/25
apixaban 5 mg tablet (Eliquis) 5 mg PO BID #60 tabs 01/27/25
clopidogrel 75 mg tablet 75 mg PO DAILY #90 tabs 01/27/25
Home Medication Changes
all new except vitamins
Pending Results: No
[2025-01-27] MEDS: PLAVIX 600 MG PO (14:02)
--- NOTE | 2025-01-27 15:22 | PTCARENOTE ---
Discharge instructions reviewed with Pt and his , they expressed understanding.
== END 2025-01-27 14:45 | disposition home or self-care (01) | DRG 322 ==
LOC: IVU 08:12
PROVIDERS: Nurse Practitioner; ADMITTING PHYSICIAN Internal Medicine Interventional Cardiology; EMERGENCY PHYSICIAN Emergency Medicine
PROC: 4A023N7 Measurement of Cardiac Sampling and Pressure, Left Heart, Percutaneous Approach (ICD-10-PCS; 2025-01-25)
PROC: B2111ZZ Fluoroscopy of Multiple Coronary Arteries using Low Osmolar Contrast (ICD-10-PCS; 2025-01-25)
PROC: 027034Z Dilation of Coronary Artery, One Artery with Drug-eluting Intraluminal Device, Percutaneous Approach (ICD-10-PCS; 2025-01-25)
DX: I21.29 ST elevation (STEMI) myocardial infarction involving other sites (principal); Q24.5 Malformation of coronary vessels; I48.91 Unspecified atrial fibrillation; Z82.49 Family history of ischemic heart disease and other diseases of the circulatory system; I25.10 Atherosclerotic heart disease of native coronary artery without angina pectoris; Z79.01 Long term (current) use of anticoagulants; Z79.899 Other long term (current) drug therapy
CPT/HCPCS: 80048; 80053; 80061; 83036; 84484; 85025; 85027; 85347; 86803; 92978; 93005; 93306; 93458; 99152; 99153; 99291; C1725; C1753; C1769; C1874; C1894; C9606; Q9967

== ENCOUNTER 2025-01-28 12:28 | Emergency (ER) | payer MEDICARE, OTHER, SELFPAY ==
[2025-01-28 12:31] VITALS: BP 133/90
[2025-01-28 16:25] VITALS: BP 139/109
--- NOTE | 2025-01-28 17:02 | ED.GENMED ---
History of Present Illness
General
Chief Complaint: Heart Rate Problem
Source: patient and spouse
Exam Limitations: none
Time Seen by Provider: 01/28/25 16:18
Nursing documentation reviewed up to this point in time: agreed with
History of Present Illness
History of Present Illness:
Patient is a 74-year-old male with history hypertension, hyperlipidemia who was recently discharged yesterday, 01/27/2025, following STEMI with angioplasty and stent placement who presents to the emergency department today by recommendation of
cardiology after abnormal rhythm noted on heart monitor.Patient states that he was discharged from the hospital yesterday after admission for STEMI s/p angioplasty and stent. He was sent home on mobile court recording monitor given evidence of paroxysomal
atrial fibrillation during admission.
Patient states that he was contacted by his station detective earlier today as he was out running errands with his and was told that he had an irregular heart rhythm noticed on monitor and he should come to the emergency department.
Patient states he actually feels the best that he has felt since hospital admission. He denies any chest pain, shortness of breath, lightheadedness/dizziness, fatigue.
He did notice that his heart rate seemed to be jumping around throughout the day however he remain asymptomatic.
Patient was recently started on Eliquis given evidence of paroxysmal afibb. He also takes metoprolol 25 mg daily.
Past History
Past History
ED Past Medical History: None
ED Past Surgical History: None
Social History
Tobacco: Non-smoker
Alcohol: Occasional
Drug: None
Personal:
Living: with family
Employment: Employed
Review of Systems
Review of Systems
Allergies reviewed?: Yes
All Other Systems: ROS reviewed and negative except as documented in HPI and ROS
Phy Exam
Physical Exam
Physical Exam:
Vitals: Tachycardic and hypertensive on arrival, otherwise stable.
General: Patient is well appearing, no acute distress
Skin: Warm and dry, no rashes or lesions
Head: Normocephalic, atraumatic
Eyes: Sclera nonicteric.
Throat: Protecting airway
Neck: Normal ROM, no cervical spine tenderness, no meningismus
Cardiac: Regular rate and rhythm, no murmurs. 2+ palpable DP pulses bilaterally
Pulm: Normal respiratory effort. Lungs clear bilaterally
Abdomen: No abdominal tenderness.
Extremities: No evidence of cyanosis or edema
Neuro: AAOx3. Grossly intact
Psychiatric: Normal affect.
Course
Orders/Labs/Results
Orders:
Orders
01/28/25 12:31
EKG [Electrocardiogram (*1)] Urgent
Reason for Study: Bradycardia / Tachycardia
01/28/25 12:32
EKG- Treatment ONCE
01/28/25 17:25
Amiodarone [Pacerone] 400 mg PO NOW STA
01/28/25 17:46
Basic Metabolic Panel Urgent
Complete Blood Count/With Diff Urgent
Magnesium Urgent
Abnormal Lab Results
01/28/25
17:46
RBC 4.50 L 10^6/uL
(4.70-6.10)
MCV 100.7 H fL
(80.0-94.0)
MCH 35.1 H pg
(27.0-31.0)
Monocytes % 10.8 H %
(1.7-9.3)
01/28/25 17:46
01/28/25 17:46
Vital Signs
Initial and Last Documented VS:
Initial Vital Signs
Temp Pulse Resp
98.1 F 66 18
01/28/25 12:30 01/28/25 12:30 01/28/25 12:30
Last Documented Vital Signs
Temp Pulse Resp BP Pulse Ox
98.1 F 82 18 135/94 100
01/28/25 12:30 01/28/25 19:00 01/28/25 19:00 01/28/25 19:00 01/28/25 19:00
MDM/Problems Addressed
Differential Diagnosis Includes:
Not limited to: rapid afib, other cardiac arrhythmia, electrolyte abnormality, medication side effect, cardiac ischemia, etc
MDM/Problems Addressed:
74-year-old male with history as documented significant for recent hospitalization for STEMI s/p angioplasty and stent discharged yesterday presenting back after irregular heart rate noted on court recording monitor. Sent in by cardiology. Patient
asymptomatic. On arrival, patient�s heart rate was in 120s however by my assessment it is now in the 80s. He is hypertensive. He appears to be in a rate controlled atrial fibrillation. Cardio/pulmonary assessment unremarkable. Lungs clear.
Impression is rate controlled fibrillation at this time. However, it is unclear what cardiac rhythm/rate patient was in earlier today when contact by the station detective. Will touch base with cardiology and reassess.
Update: I did discuss with cardiology, Dr. Larios who states patient was in rapid afib earier today with heart rate as high as 150 BPM. As far as management, given patient now seems rate controlled and is asymptomatic � he feels appropriate to dose
with oral amiodarone in ED, discharge w/ prescription for addition of amiodarone and have him follow up closely outpatient w/ cardiology.
I did discuss this plan with patient who is comfortable with plan. Will check basic labs, give 400 PO amiodarone as directed by cardiology and monitor briefly in ED prior to discharge.
Update: CBC and BMP/magnesium unremarkable. Patient received 400 mg of amiodarone in ED about one hour ago and has felt well. He remains in a rate controlled atrial fibrillation. Blood pressure has decreased some and he is stable. He remains
asymptomatic.
Ultimately � feel stable for discharge home with addition of amiodarone to current medication regimen, strict return precautions, and outpatient cardiology follow-up. Patient and patient�s comfortable w/ plan and expressed verbal understanding.
Chronic conditions affecting care:
Paroxysmal atrial fibrillation
Acute Exacerbation and/or Progression of Chronic Illness:
Rate controlled atrial fibrillation
*Pulse Oximetry
SaO2: 100
Patient hypoxic: no
*EKG
Interpreted by ED Provider?: Yes
EKG Intrepretation Date: 01/28/25
Interpretation: abnormal
Comparison EKG: changes noted
Heart Rate: 120
Rate: tachycardiac
Rhythm: a-fib
*Brim Pouncer Machine Operator Interpretation
Rate: normal
Interpretation: abnormal
Heart Rate: 83
Rhythm: a-fib
*Critical Care Note
Total Time (30-74mins, 75-104mins- exclusive of procedures): Not Applicable
Patient Management
Discussion with other providers: Motel Manager (Case discussed w/ cardiology)
ED Attending Note
-
Portions of this chart may have been created with voice recognition software.� Occasional wrong word or��sound alike� substitutions may have occurred due to the inherent limitations of voice recognition software.
Discharge Plan
Departure
Patient Disposition: Home (Routine Discharge)
Date of Disposition: 01/28/25
Time of Disposition: 19:23
Patient with high blood pressure during this ER visit?: Yes
Discharge Problem:
Atrial fibrillation
Instructions: Atrial Fibrillation (DC), BLOOD PRESSURE
Prescriptions:
New
amiodarone 200 mg tablet
200 mg PO BID Qty: 60 0RF
No Action
multivitamin Tablet
1 tab PO DAILY
cholecalciferol (vitamin D3) [Vitamin D3] 25 mcg (1,000 unit) Capsule
1,000 unit PO DAILY
vitamin B complex Capsule
1 cap PO DAILY
saw palmetto 80 mg Capsule
320 mg PO DAILY
zinc Tablet,Chewable
PO WEEKLY
atorvastatin 80 mg Tablet
80 mg PO QPM Qty: 30 5RF
metoprolol succinate 25 mg Tablet Extended Release 24 Hr
25 mg PO DAILY Qty: 30 5RF
clopidogrel 75 mg Tablet
75 mg PO DAILY Qty: 90 5RF
Eliquis 5 mg Tablet
5 mg PO BID Qty: 60 5RF
Referrals:
Elva Roberts DO [Family Provider, Family Practice]
Sammy Larios MD [Active, Cardiology]
Activity Restrictions/Additional Instructions:
RETURN TO THE EMERGENCY DEPARTMENT WITH ANY CHEST PAIN, SHORTNESS OF THE BREATHING, LIGHTHEADEDNESS OR DIZZINESS, SIGNIFICANT FATIGUE SEVERE BACK PAIN, PERSISTENTLY ELEVATED HEART RATE, WORSENING IN CURRENT SYMPTOMS, OR ANY OTHER CONCERNS
- Your lab work showed no acute abnormalities today in the emergency department. You remained in a rate controlled atrial fibrillation.
- You were given 400 mg of oral amiodarone. A prescription for amiodarone has been sent to your pharmacy as directed by cardiology which you should take twice a day.
- Continue to take all your other medications as prescribed
- Get plenty of rest and avoid any exertional activities until seen by cardiology
- Follow-up with cardiology for further evaluation/management and to ensure your symptoms are improving
Monitor your symptoms closely and return to the emergency department with any acute worsening/new symptoms or any other concerns
Interventions
Interventions:
*Risk Screen - Suicide Last Done: 01/28/25 12:39
*General Assessment Last Done: 01/28/25 16:29
*Nursing Disposition Last Done: 01/28/25 20:00
ED- Cardiac Assessment Last Done: 01/28/25 16:29
ED- Pulmonary Assessment Last Done: 01/28/25 16:29
Discharge Date and Time
Discharge Date/Time: 01/28/25 20:01
Print Language: QATARI
[2025-01-28] MEDS: PACERONE 400 MG PO (17:51)
[2025-01-28 17:58] VITALS: BP 138/89
[2025-01-28 18:17] LABS: Hematocrit 45.3 % (39.0-52.0); Hemoglobin 15.8 g/dL (13.0-18.0); Mean Corp Hgb Conc. 34.9 g/dL (33.0-37.0); Mean Corpuscular Volume 100.7 fL (80.0-94.0); Nucleated Red Blood Cells % 0 % (-); Platelet Count 140 10^3/uL (130-400); Red Cell Dist. Width 13.7 % (11.5-14.5)
[2025-01-28 19:00] VITALS: BP 135/94
[2025-01-28 19:00] LABS: Blood Urea Nitrogen 14 mg/dl (9-20); Calcium 9.4 mg/dl (8.4-10.2); Carbon Dioxide 29 mmol/L (22-30); Chloride 101 mmol/L (98-107); Glucose 93 mg/dl (70-99); Magnesium 2.0 mg/dl (1.6-2.3); Potassium 4.7 mmol/L (3.5-5.1); Sodium 136 mmol/L (135-145); eGFR > 60.00
--- NOTE | 2025-01-28 19:58 | EDRN ---
Pt not seen by this [facility] - Jada Muñiz RN discharging pt
== END 2025-01-28 20:01 | disposition home or self-care (01) ==
LOC: EMR 12:28
PROVIDERS: Physician Assistant; EMERGENCY PHYSICIAN Student in an Organized Health Care Education/Training Program; FAMILY PHYSICIAN Family Medicine
DX: I48.0 Paroxysmal atrial fibrillation (principal); I21.3 ST elevation (STEMI) myocardial infarction of unspecified site; I10 Essential (primary) hypertension; E78.5 Hyperlipidemia, unspecified; Z79.01 Long term (current) use of anticoagulants; Z95.5 Presence of coronary angioplasty implant and graft
CPT/HCPCS: 99284; 80048; 83735; 85025; 93005

== ENCOUNTER 2025-02-10 17:18 | Emergency (ER) | payer MEDICARE, OTHER, SELFPAY ==
[2025-02-10 17:28] VITALS: BP 182/93
[2025-02-10 18:06] VITALS: BP 155/81
[2025-02-10 19:00] VITALS: BP 149/93
[2025-02-10 19:20] LABS: Hematocrit 42.3 % (39.0-52.0); Hemoglobin 14.3 g/dL (13.0-18.0); Mean Corp Hgb Conc. 33.8 g/dL (33.0-37.0); Mean Corpuscular Volume 101.7 fL (80.0-94.0); Nucleated Red Blood Cells % 0 % (-); Platelet Count 158 10^3/uL (130-400); Red Cell Dist. Width 13.5 % (11.5-14.5)
--- NOTE | 2025-02-10 19:38 | ED.GENMED ---
History of Present Illness
General
Chief Complaint: Heart Rate Problem
Time Seen by Provider: 02/10/25 18:14
History of Present Illness
History of Present Illness:
74-year-old male with history of CAD, A-fib, and hypertension presenting to the emergency department for concern of low heart rate. Patient with recent hospitalization for chest pain after exertion. Patient was found to be in new onset A-fib with
concerning features, had stent placement to his left circumflex on 01/25. Patient has since been started on metoprolol and Eliquis for the atrial fibrillation. There is also some concern for nonsustained V. tach, started on amiodarone. He notes
that yesterday he saw one of the physician assistants with the cardiology service, follows with Dr. Larios and was told that he was out of A-fib. He notes that he has a home monitor and last night his heart rate was reading low, as well as this
morning which concerned him. This prompted him to come to the hospital. He is currently asymptomatic. Denies chest pain, difficulty breathing, lightheadedness or dizziness. Denies additional acute medical complaints
Past History
Past History
ED Past Medical History: None
ED Past Surgical History: None
Social History
Tobacco: Non-smoker
Alcohol: Occasional
Drug: None
Personal:
Living: with family
Employment: Employed
Phy Exam
Physical Exam
Physical Exam:
General: Well-appearing, no clinical signs of dehydration, nontoxic and in no acute distress
HEENT: protecting airway
Neck: appears supple
CV: Normal heart rate, irregular rhythm, no evidence of cyanosis
Resp: No accessory muscle use, no increased work of breathing, lungs clear to auscultation bilaterally
Abd: No distention
Extremities: No deformities, no swelling
Neuro: alert, no focal neurologic deficit
: deferred
Rectal: deferred
Psych: Normal affect
Skin: Intact
Course
Orders/Labs/Results
Orders:
Orders
02/10/25 17:19
EKG [Electrocardiogram (*1)] Urgent
Reason for Study: Abnormal EKG
EKG- Treatment ONCE
02/10/25 19:05
Electrocardiogram (*1) Urgent
Reason for Study: Palpitations
EKG- Treatment ONCE
02/10/25 19:13
Complete Blood Count/With Diff Urgent
Comprehensive Metabolic Panel Urgent
02/10/25 20:28
0.9% Sodium Chloride 1000 ml [Nss] 1,000 ml IV BOLUS
Abnormal Lab Results
02/10/25
19:13
WBC 4.5 L 10^3/uL
(4.8-10.8)
RBC 4.16 L 10^6/uL
(4.70-6.10)
MCV 101.7 H fL
(80.0-94.0)
MCH 34.4 H pg
(27.0-31.0)
Monocytes % 10.3 H %
(1.7-9.3)
Sodium 134 L mmol/L
(135-145)
02/10/25 19:13
02/10/25 19:13
Vital Signs
Initial and Last Documented VS:
Initial Vital Signs
Temp Pulse Resp BP Pulse Ox
98.7 F 38 16 182/93 99
02/10/25 17:28 02/10/25 17:28 02/10/25 17:28 02/10/25 17:28 02/10/25 17:28
Last Documented Vital Signs
Temp Pulse Resp BP Pulse Ox
98.7 F 67 16 149/93 99
02/10/25 17:28 02/10/25 19:15 02/10/25 19:15 02/10/25 19:00 02/10/25 19:40
MDM/Problems Addressed
MDM/Problems Addressed:
74-year-old male with history of CAD status post stenting, A-fib on Eliquis and metoprolol presenting to the emergency department for concern of low heart rate at home. Vital signs on arrival significant for high blood pressure which improved
without intervention.
On exam patient is resting comfortably, no acute distress. Currently asymptomatic. Initial EKG shows concern for possible A-fib versus PVCs. EKG repeated, which is more consistent with atrial fibrillation. Suspect that patient's symptoms and
reportedly low heart rate at home is from atrial fibrillation, likely paroxysmal. Patient is on appropriate therapy. Will consult with cardiology regarding any medication adjustments. However currently asymptomatic and hemodynamically stable
20:40 -patient's labs are unremarkable. In discussion with cardiology on-call, suspect paroxysmal A-fib. Given report of low heart rates at home, he recommends lowering patient's metoprolol, recently discharged on 25 mg daily. However on
reassessment patient notes that he was discontinued on the metoprolol last week by cardiology. He is only on the Lipitor, amiodarone, Eliquis. At this time, we will hold off on changing any medications. Per cardiology, recommended to call office
tomorrow for follow-up. Patient's heart rate remains normal. Feel stable for discharge. Return precautions discussed and patient verbalized understanding
*Pulse Oximetry
SaO2: 99
Oxygen Mode of Delivery: Room air
Patient hypoxic: no
*EKG
Interpreted by ED Provider?: Yes
EKG Intrepretation Date: 02/10/25
EKG Intrepretation Time: 19:42
Interpretation: abnormal
Heart Rate: 77
Rate: normal
Rhythm: a-fib
Colp: normal axis
QRS Pattern: normal QRS
Ischemia: no ischemia
*Critical Care Note
Total Time (30-74mins, 75-104mins- exclusive of procedures): Not Applicable
ED Attending Note
-
Portions of this chart may have been created with voice recognition software.� Occasional wrong word or��sound alike� substitutions may have occurred due to the inherent limitations of voice recognition software.
Discharge Plan
Departure
Prescriptions:
No Action
multivitamin Tablet
1 tab PO DAILY
cholecalciferol (vitamin D3) [Vitamin D3] 25 mcg (1,000 unit) Capsule
1,000 unit PO DAILY
vitamin B complex Capsule
1 cap PO DAILY
saw palmetto 80 mg Capsule
320 mg PO DAILY
zinc Tablet,Chewable
PO WEEKLY
atorvastatin 80 mg Tablet
80 mg PO QPM Qty: 30 5RF
metoprolol succinate 25 mg Tablet Extended Release 24 Hr
25 mg PO DAILY Qty: 30 5RF
clopidogrel 75 mg Tablet
75 mg PO DAILY Qty: 90 5RF
Eliquis 5 mg Tablet
5 mg PO BID Qty: 60 5RF
amiodarone 200 mg tablet
200 mg PO BID Qty: 60 0RF
Referrals:
Elva Roberts DO [Family Provider, Family Practice]
Interventions
Interventions:
*Risk Screen - Suicide Last Done: 02/10/25 17:28
*General Assessment Last Done: 02/10/25 18:10
*Neglect/Abuse Screening Last Done: 02/10/25 17:28
*ED- Fall Risk Assessment Last Done: 02/10/25 18:10
*ED COVID-19 Vaccine History Last Done: 02/10/25 18:10
*ED Influenza Vaccine History Last Done: 02/10/25 18:10
ED- Cardiac Assessment Last Done: 02/10/25 18:00
ED- Pulmonary Assessment Last Done: 02/10/25 18:00
Discharge Date and Time
Print Language: AZERI
[2025-02-10 19:39] LABS: ALT (SGPT) 21 U/L (0-50); AST (SGOT) 24 U/L (17-59); Albumin 4.1 g/dl (3.5-5.0); Alkaline Phosphatase 99 U/L (38-126); Blood Urea Nitrogen 20 mg/dl (9-20); Calcium 9.2 mg/dl (8.4-10.2); Carbon Dioxide 30 mmol/L (22-30); Chloride 100 mmol/L (98-107); Glucose 91 mg/dl (70-99); Potassium 4.6 mmol/L (3.5-5.1); Sodium 134 mmol/L (135-145); Total Protein 6.9 g/dl (6.3-8.2); eGFR > 60.00
[2025-02-10 20:00] VITALS: BP 147/102
[2025-02-10] MEDS: NSS 1000 IV (20:30)
[2025-02-10 21:00] VITALS: BP 144/91
== END 2025-02-10 21:21 | disposition home or self-care (01) ==
LOC: EMR 17:18
PROVIDERS: EMERGENCY PHYSICIAN Student in an Organized Health Care Education/Training Program; FAMILY PHYSICIAN Family Medicine; REFERRING PHYSICIAN Internal Medicine Cardiovascular Disease
DX: I48.0 Paroxysmal atrial fibrillation (principal); I25.10 Atherosclerotic heart disease of native coronary artery without angina pectoris; I10 Essential (primary) hypertension; Z95.5 Presence of coronary angioplasty implant and graft; Z79.01 Long term (current) use of anticoagulants; Z79.899 Other long term (current) drug therapy
CPT/HCPCS: 99284; 96360; 80053; 85025; 93005

== ENCOUNTER 2025-02-16 14:28 | Outpatient (RCR) | payer MEDICARE, OTHER, SELFPAY | END 2025-02-16 23:59 | disposition home or self-care (01) | LOC: CRHB 14:28 | PROVIDERS: ATTENDING PHYSICIAN Internal Medicine Cardiovascular Disease; FAMILY PHYSICIAN Family Medicine | DX: I21.01 ST elevation (STEMI) myocardial infarction involving left main coronary artery (principal); Z95.5 Presence of coronary angioplasty implant and graft; I25.2 Old myocardial infarction; I25.10 Atherosclerotic heart disease of native coronary artery without angina pectoris | CPT/HCPCS: G0422; G0423 ==

== ENCOUNTER 2025-02-18 13:23 | Emergency (ER) | payer MEDICARE, OTHER, SELFPAY ==
[2025-02-18 13:30] VITALS: BP 141/79
--- NOTE | 2025-02-18 16:24 | ED.GENMED ---
History of Present Illness
General
Chief Complaint: Nose Bleed
Source: patient and spouse
Exam Limitations: none
Time Seen by Provider: 02/18/25 15:26
Nursing documentation reviewed up to this point in time: agreed with
History of Present Illness
History of Present Illness:
74-year-old male past medical history of A-fib currently on Eliquis as well as recent NH status post stent currently on Plavix presenting to the emergency department with concerns of bleeding from his right nostril starting this morning that was
seen response somewhat to pressure but recurred multiple times. Improved by the time he was assessed in the ER. Denies any numbness weakness lightheadedness. Denies any large-volume bleeding. Denies trauma.
Past History
Past History
ED Past Medical History: None
ED Past Surgical History: None
Social History
Tobacco: Non-smoker
Alcohol: Occasional
Drug: None
Personal:
Living: with family
Employment: Employed
Review of Systems
Review of Systems
Allergies reviewed?: Yes
All Other Systems: ROS reviewed and negative except as documented in HPI and ROS
Phy Exam
Physical Exam
Physical Exam:
GENERAL: Alert , in no apparent distress
EYE: pupils equal and reactive
NECK: Supple, no significant adenopathy.
ENT: Right, no active bleeding. Nostril with an area of scabbing to the nasal septum no significant blood to the posterior pharynx. o/p clr, mmm.
CARDIAC: Regular rate and rhythm .
LUNGS: Clear breath sounds bilaterally, no acute respiratory distress, no wheezes/rales/rhonchi
ABDOMEN: Soft, without focal tenderness, no r/g, no cvat
NEUROLOGICAL: Alert and oriented, no focal neuro deficits
SKIN: Warm and dry, skin intact.
MUSCULOSKELETAL: No edema, well perfused.
PSYCH: Normal and appropriate interaction.
Course
Vital Signs
Initial and Last Documented VS:
Initial Vital Signs
Temp Pulse Resp BP Pulse Ox
97.8 F 58 18 141/79 99
02/18/25 13:30 02/18/25 13:30 02/18/25 13:30 02/18/25 13:30 02/18/25 13:30
Last Documented Vital Signs
Temp Pulse Resp BP Pulse Ox
97.8 F 58 18 141/79 99
02/18/25 13:30 02/18/25 13:30 02/18/25 13:30 02/18/25 13:30 02/18/25 16:24
Procedures
Nosebleed
Drug treatment: Lidocaine and Epinephrine
Treatment: local pressure applied and Silver nitrate cautery
Post treatment bleeding: none- good control
MDM/Problems Addressed
MDM/Problems Addressed:
74-year-old male presenting to the emergency department with concerns of a nosebleed to the right nose. This appears to be with an anterior nosebleed area of likely previous bleeding was visualized to the right nasal septum. This was initially
treated with lidocaine and epinephrine and then cauterized with silver nitrate. No bleeding throughout ER stay advised for outpatient follow-up. Return precautions given.
*Pulse Oximetry
SaO2: 99
Oxygen Mode of Delivery: Room air
Patient hypoxic: no (99)
*Critical Care Note
Total Time (30-74mins, 75-104mins- exclusive of procedures): Not Applicable
ED Attending Note
-
Portions of this chart may have been created with voice recognition software.� Occasional wrong word or��sound alike� substitutions may have occurred due to the inherent limitations of voice recognition software.
Discharge Plan
Departure
Patient Disposition: Home (Routine Discharge)
Date of Disposition: 02/18/25
Time of Disposition: 16:24
Patient with high blood pressure during this ER visit?: No
Condition: Good
Covid-19: Not Applicable
Discharge Problem:
Acute anterior epistaxis
Instructions: Nosebleeds (DC)
Prescriptions:
No Action
multivitamin Tablet
1 tab PO DAILY
cholecalciferol (vitamin D3) [Vitamin D3] 25 mcg (1,000 unit) Capsule
1,000 unit PO DAILY
vitamin B complex Capsule
1 cap PO DAILY
saw palmetto 80 mg Capsule
320 mg PO DAILY
zinc Tablet,Chewable
PO WEEKLY
atorvastatin 80 mg Tablet
80 mg PO QPM Qty: 30 5RF
metoprolol succinate 25 mg Tablet Extended Release 24 Hr
25 mg PO DAILY Qty: 30 5RF
clopidogrel 75 mg Tablet
75 mg PO DAILY Qty: 90 5RF
Eliquis 5 mg Tablet
5 mg PO BID Qty: 60 5RF
amiodarone 200 mg tablet
200 mg PO BID Qty: 60 0RF
Referrals:
Elva Roberts DO [Family Provider, Family Practice]
Activity Restrictions/Additional Instructions:
You came to the emergency department today with concerns of a nosebleed. This was cauterized with silver nitrate. If this recurs you can acutely use oxymetazoline or phenylephrine nasal spray along with the nasal clamp. Please follow-up with the
ENT if this persists if it worsens please return to the ER.
Interventions
Interventions:
*Risk Screen - Suicide Last Done: 02/18/25 13:30
*General Assessment Last Done: 02/18/25 13:30
*Neglect/Abuse Screening Last Done: 02/18/25 14:28
*ED- Fall Risk Assessment Last Done: 02/18/25 14:28
*ED COVID-19 Vaccine History Last Done: 02/18/25 14:28
*ED Influenza Vaccine History Last Done: 02/18/25 13:30
*Nursing Disposition Last Done: 02/18/25 16:51
ED-EENT Assessment Last Done: 02/18/25 14:28
Discharge Date and Time
Discharge Date/Time: 02/18/25 16:52
Print Language: LIBYAN
== END 2025-02-18 16:52 | disposition home or self-care (01) ==
LOC: EMR 13:23
PROVIDERS: EMERGENCY PHYSICIAN Emergency Medicine; FAMILY PHYSICIAN Family Medicine
DX: R04.0 Epistaxis (principal); I48.91 Unspecified atrial fibrillation; Z79.01 Long term (current) use of anticoagulants
CPT/HCPCS: 99284; 30901

== ENCOUNTER 2025-03-04 14:31 | Outpatient (RCR) | payer MEDICARE, OTHER, SELFPAY | END 2025-03-04 23:59 | disposition home or self-care (01) | LOC: CRHB 14:31 | PROVIDERS: ATTENDING PHYSICIAN Internal Medicine Cardiovascular Disease; FAMILY PHYSICIAN Family Medicine | DX: I25.2 Old myocardial infarction (principal); I25.10 Atherosclerotic heart disease of native coronary artery without angina pectoris (principal); Z95.5 Presence of coronary angioplasty implant and graft | CPT/HCPCS: G0422; G0423 ==